=== PATIENT | female | born 1935 | race Hispanic/Latino ===

== ENCOUNTER 2018-06-08 10:31 | Emergency (ER) | payer OTHER ==
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
--- NOTE | 2018-06-08 12:50 | RAD REPORT ---
EXAM DESCRIPTION: RAD - Knee Left 3 View - 06/08/2018 10:52 am CLINICAL HISTORY: Left knee pain status post injury FINDINGS: No fracture or dislocation is seen. The bones are osteoporotic. Marked osteoarthritis involves the medial compartment. Mild lateral subluxation of tibia on the femur is seen. Several calcific densities along the superior aspect of the knee may represent loose bodies
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
[2018-06-08 13:29] VITALS: BP 151/85; O2SAT 100
--- NOTE | 2018-06-10 07:53 | EKG ---
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
== END 2018-06-08 13:21 | disposition home or self-care (01) ==
LOC: ER 10:31
DX: S20.219A Contusion of unspecified front wall of thorax, initial encounter (principal); V43.52XA Car driver injured in collision with other type car in traffic accident, initial encounter; Y93.89 Activity, other specified; Y92.410 Unspecified street and highway as the place of occurrence of the external cause; M23.92 Unspecified internal derangement of left knee; Z88.5 Allergy status to narcotic agent; E78.5 Hyperlipidemia, unspecified; I10 Essential (primary) hypertension
CPT/HCPCS: 71260; 73562; 74177; 93005; Q9967; 99285

== ENCOUNTER 2018-06-12 23:58 | Emergency (ER) | payer OTHER ==
[2018-06-13] MEDS ORDERED: HYDROCODONE/APAP 5/325 MG TAB ONE (04:21)
--- NOTE | 2018-06-13 04:27 | EDPHYS ---
Physician Documentation [facility] Name: Sun Robles Age: 83 yrs Sex: Female : 1935 Arrival Date: 06/13/2018 Time: 00:01 Bed 19 Private MD: Heladio Herbert R ED Physician Vadim Figueroa HPI: 06/13 04:21 This 83 yrs old Female presents to ER via Wheelchair with complaints of Chest gs Wall Injury. 04:21 Onset: The symptoms/episode began/occurred 7 week(s) ago, and became persistent. gs Duration: The symptoms are continuous. The patient's shortness of breath is aggravated by. 04:22 The patient or guardian reports chest pain that is located primarily in the anterior gs chest wall. Associated signs and symptoms: Pertinent positives: shortness of breath. The chest pain is described as sharp. Duration: The patient or guardian reports a single episode, that is still ongoing. Modifying factors: the symptoms are aggravated by deep breath. Severity of pain: At its worst the pain was moderate in the emergency department the pain is unchanged. The patient has not experienced similar symptoms in the past. The patient has been recently seen at the [facility] Emergency Department, last week. Historical: - Allergies: 00:26 Codeine; bs1 - Home Meds: 00:26 Cartia XT 240 mg Oral cp24 [Active]; atorvastatin 80 mg Oral tab [Active]; ProAir HFA bs1 inhalation [Active]; fluticasone propionate (bulk) miscellaneous [Active]; pantoprazole 40 mg Oral TbEC [Active]; - PMHx: 00:26 Angina; COPD; heart problem (valve); Hyperlipidemia; Hypertension; lung problem; bs1 - PSHx: 00:26 ; Cholecystectomy; Hysterectomy; hip sx; bs1 - Immunization history:: Adult Immunizations up to date. - Social history:: Smoking status: Patient/guardian denies using tobacco. - Ebola Screening: : Patient negative for fever greater than or equal to 101.5 degrees Fahrenheit, and additional compatible Ebola Virus Disease symptoms Patient denies exposure to infectious person. ROS: 04:22 All other systems are negative. gs Exam: 04:22 Head/Face: Normocephalic, atraumatic. Eyes: Pupils equal round and reactive to light, gs extra-ocular motions intact. Lids and lashes normal. Conjunctiva and sclera are non-icteric and not injected. Cornea within normal limits. Periorbital areas with no swelling, redness, or edema. ENT: Nares patent. No nasal discharge, no septal abnormalities noted. Tympanic membranes are normal and external auditory canals are clear. Oropharynx with no redness, swelling, or masses, exudates, or evidence of obstruction, uvula midline. Mucous membranes moist. Neck: Trachea midline, no thyromegaly or masses palpated, and no cervical lymphadenopathy. Supple, full range of motion without nuchal rigidity, or vertebral point tenderness. No Meningismus. Cardiovascular: Regular rate and rhythm with a normal S1 and S2. No gallops, murmurs, or rubs. Normal PMI, no JVD. No pulse deficits. Abdomen/GI: Soft, non-tender, with normal bowel sounds. No distension or tympany. No guarding or rebound. No evidence of tenderness throughout. Back: No spinal tenderness. No costovertebral tenderness. Full range of motion. Skin: Warm, dry with normal turgor. Normal color with no rashes, no lesions, and no evidence of cellulitis. MS/ Extremity: Pulses equal, no cyanosis. Neurovascular intact. Full, normal range of motion. Neuro: Awake and alert, GCS 15, oriented to person, place, time, and situation. Cranial nerves II-XII grossly intact. Motor strength 5/5 in all extremities. Sensory grossly intact. Cerebellar exam normal. Normal gait. 04:22 Constitutional: The patient appears alert, awake. 04:22 Chest/axilla: Palpation: tenderness, that is moderate. 04:22 ECG was reviewed by the Attending Physician. 04:22 Respiratory: the patient does not display signs of respiratory distress, Respirations: normal, Breath sounds: decreased breath sounds, that are mild, are scattered. Vital Signs: 00:15 BP 167 / 88; Pulse 82; Resp 17; Temp 98; Pulse Ox 97% on R/A; Weight 71.67 kg; Height 5 bs1 ft. 4 in. (162.56 cm); 01:15 BP 136 / 74; Pulse 67; Resp 16 S; Pulse Ox 97% on R/A; bs1 02:15 BP 138 / 72; Pulse 68; Resp 17 S; Pulse Ox 97% on R/A; bs1 03:00 BP 130 / 68; Pulse 65; Resp 16 S; Pulse Ox 93% on R/A; bs1 04:00 BP 139 / 72; Pulse 63; Resp 15 S; Pulse Ox 95% on R/A; bs1 04:45 BP 147 / 64; Pulse 63; Resp 16; Temp 97.9(O); Pulse Ox 96% on R/A; Pain 3/10; bs1 00:15 Body Mass Index 27.12 (71.67 kg, 162.56 cm) bs1 MDM: 00:33 Patient medically screened. 04:22 Differential diagnosis: Blunt Chest Trauma Chest Wall Contusion Pneumothorax Pulmonary gs Contusion Rib Fracture. Data reviewed: vital signs, nurses notes. Physician consultation: trauma mike reviewed case will see but probably wont admit no clinical reason except pain control 1 week from injury. 06/13 00:34 Order name: Troponin (emerg Dept Use Only); Complete Time: 04:10 06/13 00:34 Order name: CT Chest Wo Con 06/13 04:55 Order name: INCENTIVE SPIROMETRY bs1 EC:22 Rate is 77 beats/min. Rhythm is regular. FL interval is normal. QRS interval is normal. gs T waves are Normal. No ST changes noted. Clinical impression: Abnormal EKG without significant change. Interpreted by me. Administered Medications: 04:18 Drug: [place] 5 mg-325 mg 1 tabs Route: PO; bs1 04:55 Follow up: Response: No adverse reaction bs1 Disposition: 06/13/18 04:27 Discharged to Home. Impression: Fracture of body of sternum. - Condition is Stable. - Discharge Instructions: Sternal Fracture. - Prescriptions for Tramadol 50 mg Oral Tablet - take 1 tablet by ORAL route every 8 hours as needed; 12 tablet. - Medication Reconciliation Form, Thank You Letter, Antibiotic Education, Prescription Opioid Use form. - Follow up: Private Physician; When: 2 - 3 days; Reason: Re-evaluation by your physician. Signatures: Dispatcher [employer] EDMS Vadim Figueroa MD MD gs Salazar, Brittany RN RN bs1 Corrections: (The following items were deleted from the chart) 04:56 04:27 06/13/2018 04:27 Discharged to Home. Impression: Fracture of body of sternum. bs1 Condition is Stable. Forms are Medication Reconciliation Form, Thank You Letter, Antibiotic Education, Prescription Opioid Use. Follow up: Private Physician; When: 2 - 3 days; Reason: Re-evaluation by your physician. gs
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
[2018-06-13 05:06] VITALS: BP 147/64; TEMP 97.9; O2SAT 96
--- NOTE | 2018-06-13 08:29 | RAD REPORT ---
EXAM DESCRIPTION: CT - Thorax Wo Con CLINICAL HISTORY: Chest pain PAIN COMPARISON: Chest For Pe Angio dated 08/04/2017; Chest Abdomen Pelvis W Cont dated 06/08/2018 FINDINGS: Small calcified granuloma again noted in the lungs, stable. No focal pulmonary infiltrate. No pleural thickening or pleural effusion. No pneumothorax. No axillary, mediastinal or hilar adenopathy. Fracture is noted through the sternal body. Small amount of adjacent hematoma seen in the anterior me diastinum. Fat stranding in the right breast with focal soft tissue hyperdensity compatible with denia mishel. All CT scans are performed using dose optimization technique as appropriate and may include automated exposure control or mA/KV adjustment according to patient size. IMPRESSION: Fracture of the sternal body is noted with a small amount of adjacent hematoma. Right breast hematoma again seen.
--- NOTE | 2018-06-13 16:29 | EKG ---
Test Date: 2018-06-13 Test Time: 00:11:48 Transportation Inspector: YANN MEASUREMENT RESULTS: Intervals: Rate: 77 IN: 152 QRSD: 90 QT: 374 QTc: 423 [place]: P: 34 IN: 152 QRS: -27 T: 22 INTERPRETIVE STATEMENTS: Normal sinus rhythm with sinus arrhythmia Minimal voltage criteria for LVH, may be normal variant Borderline ECG Compared to ECG 06/08/2018 10:37:49 Left ventricular hypertrophy now present Electronically Signed On 06-13-18 16:27:28 CDT by Surinder Oliveira
== END 2018-06-13 04:56 | disposition home or self-care (01) ==
LOC: ER 23:58
DX: S22.22XA Fracture of body of sternum, initial encounter for closed fracture (principal); X58.XXXA Exposure to other specified factors, initial encounter; Y93.9 Activity, unspecified; Y92.9 Unspecified place or not applicable; Z88.5 Allergy status to narcotic agent; I10 Essential (primary) hypertension; E78.5 Hyperlipidemia, unspecified; J44.9 Chronic obstructive pulmonary disease, unspecified
CPT/HCPCS: 36415; 71250; 84484; 93005; 99285

== ENCOUNTER 2018-10-18 11:18 | Emergency (ER) | payer OTHER ==
--- OUTSIDE RECORDS SUMMARY | 2018-10-18 11:26 | XMS REPORT ---
:1935 [facility] [address] [place] [address] [address] [place] [address] Care Team Providers Name Role Phone Unavailable Unavailable Unavailable Problems This patient has no known problems. Allergies, Adverse Reactions, Alerts This patient has no known allergies or adverse reactions. Medications This patient has no known medications.
--- NOTE | 2018-10-18 12:33 | RAD REPORT ---
EXAM DESCRIPTION: RAD - Chest Pa And Lat (2 Views) - 10/18/2018 12:27 pm CLINICAL HISTORY: COUGH Chest pain. COMPARISON: Chest Single View dated 08/04/2017; CHEST PA AND LAT 2 VIEW dated 02/15/2012; CHEST SINGL E VIEW dated 04/04/2009 FINDINGS: The lungs are mildly emphysematous but clear. The heart is upper limit of normal in size. No displaced fractures. Aortic atherosclerosis. IMPRESSION: Mild COPD.
--- NOTE | 2018-10-18 14:49 | EKG ---
Test Date: 2018-10-18 Test Time: 14:22:51 Community Service Officer: ALLYSON MEASUREMENT RESULTS: Intervals: Rate: 66 MN: 178 QRSD: 86 QT: 416 QTc: 436 [place]: P: 58 MN: 178 QRS: -17 T: 25 INTERPRETIVE STATEMENTS: Sinus rhythm with marked sinus arrhythmia Otherwise normal ECG Compared to ECG 06/13/2018 00:11:48 Left ventricular hypertrophy no longer present Electronically Signed On 10-18-18 14:48:15 COLLECTOR OF AQUARIUM SPECIMENS by Marcos Bloom
[2018-10-18 15:46] LABS: Protime INR 1.08
[2018-10-18 15:51] LABS: Absolute Lymphocytes (CBC) 2.3 K/uL (0.7-4.9); Absolute Monocytes 0.4 K/uL (0.1-1.3); Absolute Neutrophil 2.2 K/uL (1.8-8.0); Basophils % 0.5 % (0-1.3); Eosinophils % 0.9 % (0-4.4); Hematocrit 44.4 % (36.0-45.0); Lymphocytes % 45.6 % (15.3-44.8); MPV 9.7 fL (7.6-11.3); Monocytes % 8.5 % (3.3-12.3); RBC Red Blood Cell Count 4.93 M/uL (3.86-4.86)
[2018-10-18 16:02] LABS: ALT/SGPT 28 U/L (12-78); AST/SGOT 18 U/L (15-37); Albumin 3.8 g/dL (3.4-5.0); Alkaline Phosphatase 82 U/L (45-117); BUN Blood Urea Nitrogen 8 mg/dL (7-18); Bicarbonate 29 mmol/L (21-32); Bilirubin Direct 0.1 mg/dL (0-0.2); Bilirubin Total 0.4 mg/dL (0.2-1.0); Glucose Level 89 mg/dL (74-106); Magnesium 2.7 mg/dL (1.8-2.4); NT PRO-BNP 36 pg/mL (<450); Potassium 3.3 mmol/L (3.5-5.1); Sodium Level 141 mmol/L (136-145); Troponin (Emerg Dept Use Only) < 0.02 ng/mL (0.0-0.045)
--- NOTE | 2018-10-18 16:43 | RAD REPORT ---
EXAM DESCRIPTION: CT - Chest For Pe Angio - 10/18/2018 4:30 pm CLINICAL HISTORY: Chest pain and cough COMPARISON: May 2018 TECHNIQUE: Dynamically enhanced axial 3 mm thick images of the chest were obtained during administra tion of <100> mL Isovue 370 IV contrast. Coronal and oblique reconstruction images were generated and reviewed. Exam utilizes a protocol for optimal evaluation of pulmonary arterial tree. Maximum intensity projections 3D imaging was utilized All CT scans are performed using dose optimization technique as appropriate and may include automated exposure control or mA/KV adjustment according to patient size. FINDINGS: A pulmonary embolus is not seen. A thoracic aortic aneurysm is not noted. A pleural effusion is not seen. A pericardial effusion is not seen. 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 Mild ground-glass opacities right middle lobe consistent with a mild alveolitis
--- NOTE | 2018-10-18 16:56 | EDPHYS ---
Physician Documentation [facility] Name: Sun Robles Age: 83 yrs Sex: Female : 1935 Arrival Date: 10/18/2018 Time: 11:24 Bed 19 Private MD: Heladio Herbert R ED Physician Michael Lafleur HPI: 10/18 13:40 This 83 yrs old Female presents to ER via Ambulatory with complaints of Flu jmm Symptoms. 13:40 The patient or guardian reports cough. Onset: The symptoms/episode began/occurred jmm gradually, 1 week(s) ago. Modifying factors: The symptoms are alleviated by humidifier. Associated signs and symptoms: Pertinent positives: chest pain, with cough, fever. This is an 83 year old female with a history of HTN, COPD, HLP, that presents to the ED weith 1 week of congestion, cough, chills, chest pain with cough. Patient states she had one episode of blood tinged sputum and states now her sputum is yellow. Patient states having fever and chills and states she feels similar to a previous episode of the flu. . Historical: - Allergies: 11:54 Codeine; aj - Home Meds: 11:54 atorvastatin 80 mg Oral tab [Active]; Cartia XT 240 mg Oral cp24 [Active]; fluticasone aj propionate (bulk) miscellaneous [Active]; pantoprazole 40 mg Oral TbEC [Active]; ProAir HFA inhalation [Active]; - PMHx: 11:54 Angina; COPD; heart problem (valve); Hyperlipidemia; Hypertension; lung problem; aj - PSHx: 11:54 ; Cholecystectomy; Hysterectomy; hip sx; aj - Immunization history:: Adult Immunizations up to date. - Social history:: Smoking status: Patient/guardian denies using tobacco. - Ebola Screening: : Patient negative for fever greater than or equal to 101.5 degrees Fahrenheit, and additional compatible Ebola Virus Disease symptoms Patient denies exposure to infectious person Patient denies travel to an Ebola-affected area in the 21 days before illness onset No symptoms or risks identified at this time. ROS: 13:40 Constitutional: Positive for body aches, chills, fever. jmm 13:40 ENT: Positive for sinus congestion. 13:40 Cardiovascular: Positive for chest pain, with cough. 13:40 Respiratory: Positive for cough, hemoptysis. 13:40 All other systems are negative. Exam: 13:40 Head/Face: atraumatic. Eyes: EOMI, no conjunctival erythema appreciated ENT: Moist jmm Mucus Membranes Neck: Trachea midline, Supple Chest/axilla: Normal chest wall appearance and motion. 13:40 Constitutional: The patient appears in no acute distress, alert, awake. 13:40 Cardiovascular: Rate: normal, Rhythm: regular, Pulses: no pulse deficits are appreciated. 13:40 Respiratory: the patient does not display signs of respiratory distress, Respirations: normal, Breath sounds: are clear throughout. 13:40 Abdomen/GI: Inspection: abdomen appears normal, Palpation: abdomen is soft and non-tender, in all quadrants. 13:40 Back: ROM is normal. 13:40 Musculoskeletal/extremity: ROM: intact in all extremities. 13:40 Skin: Appearance: Color: normal in color. 13:40 Neuro: Orientation: is normal, Mentation: is normal, Memory: is normal. 13:40 Psych: Behavior/mood is pleasant, cooperative. Vital Signs: 11:54 BP 144 / 93; Pulse 85; Resp 20; Temp 97.4; Pulse Ox 96% on R/A; Weight 68.04 kg; Height aj 5 ft. 4 in. (162.56 cm); 15:30 BP 143 / 72; Pulse 72; Resp 19; Pulse Ox 97% on R/A; Pain 0/10; em 16:47 BP 146 / 63; Pulse 61; Resp 16; Temp 97.7(O); Pulse Ox 98% on R/A; mh5 17:31 BP 182 / 84; Pulse 76; Resp 16; Pulse Ox 98% on R/A; em 11:54 Body Mass Index 25.75 (68.04 kg, 162.56 cm) aj MDM: 13:09 Patient medically screened. bindu 16:54 Data reviewed: vital signs, nurses notes. Counseling: I had a detailed discussion with fadia the patient and/or guardian regarding: the historical points, exam findings, and any diagnostic results supporting the discharge/admit diagnosis, radiology results, the need for outpatient follow up, to return to the emergency department if symptoms worsen or persist or if there are any questions or concerns that arise at home. 16:55 Data reviewed: lab test result(s), radiologic studies, CT scan. [facility] 16:55 Data interpreted: Pulse oximetry: on room air is 98 %. Interpretation: normal. ED [facility] course: Patient is alert and non toxic in appearance in the ED. Patient prescribed oral antibiotics and given strict return precautions. patient understood and agrees with the plan of care. . 10/18 11:55 Order name: Flu; Complete Time: 13:03 10/18 13:44 Order name: Basic Metabolic Panel; Complete Time: 16:03 [facility] 10/18 13:44 Order name: CBC with Diff; Complete Time: 16:02 [facility] 10/18 13:44 Order name: LFT's; Complete Time: 16:03 [facility] 10/18 13:44 Order name: Magnesium; Complete Time: 16:03 [facility] 10/18 13:44 Order name: NT PRO-BNP; Complete Time: 16:03 [facility] 10/18 11:55 Order name: XRAY Chest Pa And Lat (2 Views); Complete Time: 13:03 10/18 13:44 Order name: PT-INR; Complete Time: 16:02 [facility] 10/18 13:44 Order name: Troponin (emerg Dept Use Only); Complete Time: 16:03 [facility] 10/18 13:44 Order name: EKG; Complete Time: 13:45 [facility] 10/18 13:44 Order name: Cardiac monitoring; Complete Time: 15:50 [facility] 10/18 13:44 Order name: Procalcitonin; Complete Time: 16:10 [facility] 10/18 13:44 Order name: Lactate; Complete Time: 16:02 [facility] 10/18 13:44 Order name: CT Chest For PE Angio; Complete Time: 16:50 [facility] 10/18 13:44 Order name: EKG - Nurse/Tech; Complete Time: 15:50 [facility] 10/18 13:44 Order name: IV Saline Lock; Complete Time: 15:50 [facility] 10/18 13:44 Order name: Labs collected and sent; Complete Time: 15:50 [facility] 10/18 13:44 Order name: O2 Per Protocol; Complete Time: 15:50 [facility] 10/18 13:44 Order name: O2 Sat Monitoring; Complete Time: 15:50 [facility] 10/18 14:48 Order name: Labs - recollect needed; Complete Time: 15:36 eb Administered Medications: No medications were administered Disposition: 10/18/18 16:56 Discharged to Home. Impression: Acute bronchitis. - Condition is Stable. - Discharge Instructions: Acute Bronchitis, Adult. - Prescriptions for cefdinir 300 mg Oral capsule - take 1 capsule by ORAL route every 12 hours; 20 capsule. - Medication Reconciliation Form, Thank You Letter, Antibiotic Education, Prescription Opioid Use form. - Follow up: Heladio Herbert MD; When: 2 - 3 days; Reason: Recheck today's complaints, Continuance of care, Re-evaluation by your physician. Addendum: 10/22/2018 11:03 Co-signature as Attending Physician, Mcihael Lafleur MD I agree with the assessment and c willson plan of care. Signatures: Dispatcher [employer] Sharon Rodriguez, Michael Wang RN, MD MD cha Mickail, Joel, PA PA Akshat Flowers, PRESSURE SUPERVISOR PRESSURE SUPERVISOR em Yue Carter Corrections: (The following items were deleted from the chart) 10/18 17:32 16:56 10/18/2018 16:56 Discharged to Home. Impression: Acute bronchitis. Condition is em Stable. Forms are Medication Reconciliation Form, Thank You Letter, Antibiotic Education, Prescription Opioid Use. Follow up: Heladio Herbert; When: 2 - 3 days; Reason: Recheck today's complaints, Continuance of care, Re-evaluation by your physician. fadia
--- NOTE | 2018-10-18 16:56 | ER ---
Nurse's Notes [facility] Emergency Department Name: Sun Robles Age: 83 yrs Sex: Female : 1935 Arrival Date: 10/18/2018 Time: 11:24 Bed 19 Private MD: Heladio Herbert R Diagnosis: Acute bronchitis Presentation: 10/18 11:52 Presenting complaint: Patient states: Cough, congestion for 1 week with SOB. NAD, aj respirations are even and unlabored. Transition of care: patient was not received from another setting of care. Onset of symptoms was October 11, 2018. Risk Assessment: Do you want to hurt yourself or someone else? Patient reports no desire to harm self or others. Initial Sepsis Screen: Does the patient meet any 2 criteria? No. Patient's initial sepsis screen is negative. Does the patient have a suspected source of infection? No. Patient's initial sepsis screen is negative. Care prior to arrival: None. 11:52 Method Of Arrival: Ambulatory aj 11:52 Acuity: MAGY 3 aj Triage Assessment: 11:54 General: Appears in no apparent distress. comfortable, Behavior is calm, cooperative, aj appropriate for age. Pain: Denies pain. EENT: Reports nasal congestion nasal discharge. Neuro: Level of Consciousness is awake, alert, obeys commands, Oriented to person, place, time, situation, Appropriate for age. Respiratory: Reports shortness of breath cough that is Airway is patent Trachea midline Respiratory effort is even, unlabored, Respiratory pattern is regular, symmetrical, the patient has mild shortness of breath. Derm: Skin is intact, is healthy with good turgor, Skin is pink, warm \T\ dry. normal. Historical: - Allergies: 11:54 Codeine; aj - Home Meds: 11:54 atorvastatin 80 mg Oral tab [Active]; Cartia XT 240 mg Oral cp24 [Active]; fluticasone aj propionate (bulk) miscellaneous [Active]; pantoprazole 40 mg Oral TbEC [Active]; ProAir HFA inhalation [Active]; - PMHx: 11:54 Angina; COPD; heart problem (valve); Hyperlipidemia; Hypertension; lung problem; aj - PSHx: 11:54 ; Cholecystectomy; Hysterectomy; hip sx; aj - Immunization history:: Adult Immunizations up to date. - Social history:: Smoking status: Patient/guardian denies using tobacco. - Ebola Screening: : Patient negative for fever greater than or equal to 101.5 degrees Fahrenheit, and additional compatible Ebola Virus Disease symptoms Patient denies exposure to infectious person Patient denies travel to an Ebola-affected area in the 21 days before illness onset No symptoms or risks identified at this time. Screenin:39 Abuse screen: Denies threats or abuse. Nutritional screening: No deficits noted. em Tuberculosis screening: No symptoms or risk factors identified. Fall Risk None identified. Assessment: 13:35 General: Appears in no apparent distress. comfortable, Behavior is calm, cooperative, em Reports chills for 12-24 hours, Denies fever. Pain: Denies pain. Neuro: Level of Consciousness is awake, alert, obeys commands, Oriented to person, place, time, situation. Cardiovascular: Patient's skin is warm and dry. Rhythm is sinus rhythm. Respiratory: Reports cough that is productive, Airway is patent Respiratory effort is even, unlabored, Respiratory pattern is regular, symmetrical, Breath sounds are clear bilaterally. GI: Abdomen is flat, Patient currently denies nausea, vomiting. : No signs and/or symptoms were reported regarding the genitourinary system. EENT: No signs and/or symptoms were reported regarding the EENT system. Derm: Skin is intact, is healthy with good turgor, Skin is pink, warm \T\ dry. Musculoskeletal: Range of motion: intact in all extremities. 13:45 General: The previous assessment is accurate, call light remains within reach. . ss 15:30 Reassessment: Patient appears in no apparent distress at this time. Patient and/or em family updated on plan of care and expected duration. Pain level reassessed. Patient is alert, oriented x 3, equal unlabored respirations, skin warm/dry/pink. pt had labs recollected. 16:45 Reassessment: Patient appears in no apparent distress at this time. Patient and/or em family updated on plan of care and expected duration. Pain level reassessed. Patient is alert, oriented x 3, equal unlabored respirations, skin warm/dry/pink. Patient denies pain at this time. Patient states feeling better. 17:31 Reassessment: Patient appears in no apparent distress at this time. Patient and/or em family updated on plan of care and expected duration. Pain level reassessed. Patient is alert, oriented x 3, equal unlabored respirations, skin warm/dry/pink. Vital Signs: 11:54 BP 144 / 93; Pulse 85; Resp 20; Temp 97.4; Pulse Ox 96% on R/A; Weight 68.04 kg; Height aj 5 ft. 4 in. (162.56 cm); 15:30 BP 143 / 72; Pulse 72; Resp 19; Pulse Ox 97% on R/A; Pain 0/10; em 16:47 BP 146 / 63; Pulse 61; Resp 16; Temp 97.7(O); Pulse Ox 98% on R/A; mh5 17:31 BP 182 / 84; Pulse 76; Resp 16; Pulse Ox 98% on R/A; em 11:54 Body Mass Index 25.75 (68.04 kg, 162.56 cm) aj ED Course: 11:24 Patient arrived in ED. sb2 11:24 Heladio Herbert MD is Private Physician. sb2 11:53 Triage completed. aj 11:54 Arm band placed on left wrist. Patient placed in waiting room, Patient notified of wait aj time. Labs ordered per protocol. X-ray ordered. 12:27 XRAY Chest Pa And Lat (2 Views) In Process Unspecified. EDMS 13:00 Akshat Sims LVN is Primary Nurse. em 13:03 Darwin Acosta PA is PHCP. jmm 13:03 Michael Lafleur MD is Attending Physician. jmm 13:39 Patient has correct armband on for positive identification. Placed in gown. Bed in low em position. Call light in reach. Side rails up X2. Adult w/ patient. 14:30 Radiology exam delayed due to lab results not completed at this time. (BUN/Creatinine). sj 14:48 EKG done, by clean room technician. reviewed by Darwin LAZCANO. 3 15:30 Lab(s) recollected, by me, sent to lab. Inserted saline lock: 22 gauge in right em antecubital area, using aseptic technique. Blood collected. 15:38 Radiology exam delayed due to lab results not completed at this time. (BUN/Creatinine). vm2 16:02 Radiology exam delayed due to lab results not completed at this time. (BUN/Creatinine). nj 16:[address] nj 16:29 CT completed. Patient tolerated procedure well. Patient moved back from CT. nj 16:30 CT Chest For PE Angio In Process Unspecified. EDMS 16:55 Heladio Herbert MD is Referral Physician. jmm 17:15 No provider procedures requiring assistance completed. IV discontinued, intact, em bleeding controlled, No redness/swelling at site. Pressure dressing applied. Administered Medications: No medications were administered Outcome: 16:56 Discharge ordered by MD. jmm 17:24 Discharged to home ambulatory. em 17:24 Condition: good 17:24 Discharge instructions given to patient, Instructed on discharge instructions, follow up and referral plans. medication usage, Demonstrated understanding of instructions, follow-up care, medications, Prescriptions given X 1. 17:32 Patient left the ED. em Signatures: Dispatcher [employer] EDMS Sharon Donahue, RN RN Darwin Austin PA PA jmm Jones, Susan sj Munoz, Edgar, TEXTILE BAG SEWER TEXTILE BAG SEWER em Pamela Franklin, SARAHI RN Flo Ha Maria 5 Nellie Rivera 2 Anna Viera 2 Jessica Mendoza 3
[2018-10-18 17:43] VITALS: TEMP 97.7; O2SAT 98
[2018-10-18 17:44] VITALS: BP 182/84
== END 2018-10-18 17:32 | disposition home or self-care (01) ==
LOC: ER 11:18
DX: J20.9 Acute bronchitis, unspecified (principal); I10 Essential (primary) hypertension; E78.5 Hyperlipidemia, unspecified; J44.9 Chronic obstructive pulmonary disease, unspecified; Z88.5 Allergy status to narcotic agent
CPT/HCPCS: 36415; 71046; 71275; 80048; 80076; 83605; 83735; 83880; 84145; 84484; 85025; 85610; 87804 ×2; 93005; 99285; Q9967

== ENCOUNTER 2020-06-05 04:45 | Emergency (ER) | payer OTHER ==
--- OUTSIDE RECORDS SUMMARY | 2020-06-05 04:47 | XMS REPORT | Continuity of Care Document ---
:1935 Author Organization [facility] t Address [address] [place] [address] Care Team Providers Name Role Phone Unavailable Unavailable Unavailable Problems Condition Condition Condition Status Onset Resolution Last Treating Co mments Source Name Details Category Date Date Treatment Clinician Date HTN, goal HTN, goal Problem Active [facility] - 150/90 150/90 [facility] Mixed Mixed Diagnosis Active [facility] hyperlipid hyperlipid Leah kes - emia emia [facility] History of History of Diagnosis Active [facility] diverticul diverticul Leah kes - itis itis [facility] Hypokalemi Hypokalemi Diagnosis Active [facility] Osteoporos Osteoporos Diagnosis Active [facility] is, is, [facility] - unspecifie unspecifie Me moria d d l osteoporos osteoporos Ou tpati is type, is type, ent unspecifie unspecifie Cl inics d d pathologic pathologic al al fracture fracture presence presence Allergic Allergic Diagnosis Active [facility] rhinitis, rhinitis, [facility] - unspecifie unspecifie Me moria d d l seasonalit seasonalit Ou tpati y, y, ent unspecifie unspecifie Cl inics d trigger d trigger GERD GERD Diagnosis Active [facility] without without [facility] - esophagiti esophagiti Me moria s [facility] Cardiac Cardiac Diagnosis Active [facility] t arrhythmia arrhythmia Leah kes - , , Memoria unspecifie unspecifie l d cardiac d cardiac Outp ati arrhythmia arrhythmia en t type type Clinics Allergies, Adverse Reactions, Alerts Allergy Allergy Status Severity Reaction(s) Onset Inactive Treating Comm ents Source Name Type Date Date Clinician codeine Adverse Active nausea and [facility] Reaction vomiting [facility] Medications Ordered Filled Start Stop Current Ordering Indication Dosage Frequency Signature Comments Components Source Medication Medication Date Date Medication? Clinician (SIG) Name Name ProAir HFA ProAir HFA Yes Seth [address] [facility] needed [facility] Losartan Losartan Yes Seth [address] Potassium Potassium [facility] - [facility] Potassium Potassium Yes Seth [address] [facility] Chloride Chloride [place] with food [facility] - [facility] Vitamin C Vitamin C Yes Seth [address] [facility] Fish Oil Fish Oil Yes Seth [address] [facility] Calcium Calcium Yes Seth [address] [facility] 1200 1200 [place] with a [facility] - meal [facility] Probiotic Probiotic Yes Seth as [facility] directed [facility] Citrucel Citrucel Yes Seth [address] [facility] as needed [facility] Atorvastati Atorvastati Yes Seth [address] [facility] n Calcium n Calcium [facility] - [facility] Pantoprazol Pantoprazol Yes Seth [address] [facility] e Sodium e Sodium [facility] Fluticasone Fluticasone Yes Seth [address] [facility] Propionate Propionate [facility] each Leah kes - nostril [facility] Aspirin Aspirin Yes Seth [address] [facility] Vitamin B Vitamin B Yes Seth as [facility] 12 12 [facility] directed [facility] Coenzyme Coenzyme Yes Seth [address] [facility] Q-10 Q-10 [place] with a [facility] - meal [facility] Iron Iron Yes Seth [address] [facility] Nitroglycer Nitroglycer Yes Seth as [facility] in in [facility] directed [facility] Albuterol Albuterol Yes Seth [address] [facility] Sulfate HFA Sulfate HFA [facility] needed [facility] - [facility] Miralax Miralax Yes Seth One packet C [facility] mixed with [facility] - 8 oz of [facility] Fluid l Outpati ent Clinics Mucus Mucus Yes Seth [address] [facility] Relief Relief [facility] as needed [facility] - Chest Chest [facility]oria Congestion Congestion l Outpati ent Clinics Procedures This patient has no known procedures. Encounters Start End Encounter Admission Attending Care Care Encounter Source Date/Time Date/Time Type Type Clinicians Facility Department ID 2020-05-03 2020-05-03 [facility] [id number] [facility] 09[facility]00[facility]00 09[facility]00[facility]00 [facility] l Medicine Outpati ent Clinics 2020-02-26 2020-02-26 [facility] [id number] [facility] 16:08:00 16:08:00 t [facility] l Medicine Outpati ent Clinics 2020-01-01 2020-01-01 [facility] [id number] [facility] 08:00:00 08:00:00 t [facility] l Medicine Outpati ent Clinics 2019-09-03 2019-09-03 [facility] [id number] [facility] 09:30:00 09:30:00 t [facility] l Medicine Outpati ent Clinics 2019-06-05 2019-06-05 [facility] [id number] [facility] 09:45:00 09:45:00 t [facility] l Medicine Outpati ent Clinics 2019-05-30 2019-05-30 [facility] [id number] [facility] 10[facility]30:00 10:30:00 t [facility] l Medicine Outpati ent Clinics 2019-05-02 2019-05-02 [facility] [id number] [facility] 08[facility]00:00 08:00:00 t [facility] l Medicine Outpati ent Clinics 2019-02-28 2019-02-28 [facility] [id number] 10:15:00 10:15:00 t [facility] l Medicine Outpati ent Clinics 2018-12-09 2018-12-09 [facility] [id number] [facility] 13:30:00 13:30:00 t [facility] Medicine Outpati ent Clinics Results This patient has no known results.
--- OUTSIDE RECORDS SUMMARY | 2020-06-05 04:48 | XMS REPORT ---
:1935 Author Organization [employer] Care Team Providers Name Role Phone JerrySeth Provider Role Unavailable Allergies, Adverse Reactions, Alerts Substance Reaction Event Type codeine nausea and vomiting Drug Allergy Problems Problem Type Condition Code Onset Dates Condition Statu s Assessment HTN, goal below 150/90 I10 Activ e Problem HTN, goal below 150/90 I10 Activ e Problem Mixed hyperlipidemia E78.2 Active Problem History of diverticulitis Z87.19 Ac tive Problem Hypokalemia E87.6 Active Problem Osteoporosis, unspecified M81.0 Ac tive osteoporosis type, unspecified pathological fracture presence Problem Allergic rhinitis, unspecified J30.9 Active seasonality, unspecified trigger Problem GERD without esophagitis K21.9 Act earnest Problem Cardiac arrhythmia, unspecified I49.9 Active cardiac arrhythmia type Assessment History of diverticulitis Z. Ac tive Assessment Allergic rhinitis, unspecified J30.9 Active seasonality, unspecified trigger Assessment GERD without esophagitis K21.9 Act earnest Assessment Osteoporosis, unspecified M81.0 Ac tive osteoporosis type, unspecified pathological fracture presence Assessment Mixed hyperlipidemia E78.2 Active Assessment Hypokalemia E87.6 Active Assessment Cardiac arrhythmia, unspecified I49.9 Active cardiac arrhythmia type Medications Medication Code Code Instructions Start End Status Dosage System Date Date Mucus Relief [facility] 59332185242 400 MG Orally Active 1 tablet Chest Congestion every 4 hrs as needed Vitamin B 12 [facility] 60375047514 250 MCG Orally Active as directed ProAir HFA [facility] 23907059156 108 (90 Base) Active 2 p uffs as MCG/ACT needed Inhalation every 6 hrs Probiotic [facility] 41432102698 - Orally Active as directed Coenzyme Q-10 [facility] 18915577113 100 MG Orally Active 1 capsule Once a day with a meal Losartan ND 40561895349 100 MG Orally Active 1 tab let Potassium Once a day Aspirin ND 93098669427 325 MG Orally Active 1 tabl et Once a day Miralax [facility] 34037935016 17 grams Orally Active One packet Once daily mixed with 8 oz of Fluid Citrucel [facility] 34099772313 500 MG Orally Active 2 tab lets Six times a day as neede d Calcium 1200 [facility] 58347054784 9445-3531 Active 1 tab let MG-UNIT Orally with a Once a day meal Vitamin C [facility] 60392932540 1000 MG Orally Active 1 t ablet Once a day Albuterol [facility] 16586639582 108 (90 Base) Active 1 pu ff as Sulfate HFA MCG/ACT needed Inhalation every 4 hrs Fluticasone [facility] 75014269777 50 MCG/ACT Active 1 spr ay in Propionate Nasally Twice a each day nostril Nitroglycerin [facility] 34932663688 0.4 MG Active as Sublingual directed Iron [facility] [address]-56 65 MG Orally Active 1 tab let Once a day Fluticasone [facility] 22690882915 50 MCG/ACT Active 1 spr ay in Propionate Nasally Twice a each day nostril Fish Oil [facility] 65330076926 1200 MG Orally Active 1 ca psule Once a day Atorvastatin [facility] 63460817578 80 MG Orally Active 1 tablet Calcium Once a day Pantoprazole [facility] 19483609685 40 MG Orally Active 1 tablet Sodium Once a day Potassium [facility] 94128486776 10 MEQ Orally Active 1 ta blet Chloride Once a day with food Results No Known Results Summary Purpose [employer] Submission
[2020-06-05 06:25] LABS: Basophils % 0.4 % (0-1.3); Hematocrit 45.7 % (36.0-45.0); Lymphocytes % 21.8 % (15.3-44.8); RBC Red Blood Cell Count 4.99 M/uL (3.86-4.86)
[2020-06-05 06:28] LABS: Protime INR 1.03
[2020-06-05 07:08] LABS: ALT/SGPT 37 U/L (12-78); AST/SGOT 18 U/L (15-37); Albumin 3.9 g/dL (3.4-5.0); Alkaline Phosphatase 84 U/L (45-117); BUN Blood Urea Nitrogen 13 mg/dL (7-18); Bicarbonate 30 mmol/L (21-32); Bilirubin Direct 0.2 mg/dL (0-0.2); Bilirubin Total 0.7 mg/dL (0.2-1.0); Glucose Level 106 mg/dL (74-106); Magnesium 2.7 mg/dL (1.8-2.4); NT PRO-BNP 37 pg/mL (<450); Potassium 4.1 mmol/L (3.5-5.1); Protein, Total 8.3 g/dL (6.4-8.2); Sodium Level 142 mmol/L (136-145); Troponin (Emerg Dept Use Only) < 0.02 ng/mL (0.0-0.045)
--- NOTE | 2020-06-05 08:09 | RAD REPORT ---
EXAM DESCRIPTION: CT - Chest For Pe Angio - 06/05/2020 7:46 am CLINICAL HISTORY: Chest pain. PAIN COMPARISON: <Comparisons> TECHNIQUE: CT angiogram of the pulmonary arteries was performed with MIP. All CT scans are performed using dose optimization technique as appropriate and may include automated exposure control or mA/KV adjustment according to patient size. FINDINGS: No evidence of pulmonary thromboembolism. No acute aortic finding demonstrated. Mild diffuse COPD is present. No significant pericardial or pleural fluid. No concerning bony finding. IMPRESSION: No evidence of pulmonary thromboembolism. Mild diffuse COPD.
[2020-06-05] MEDS ORDERED: NA CHLORIDE 0.9% 500 ML ONE (08:19)
--- NOTE | 2020-06-05 08:48 | ER ---
Nurse's Notes [facility] Name: Sun Robles Age: 85 yrs Sex: Female : 1935 Arrival Date: 06/05/2020 Time: 05:01 Bed 7 Private MD: Diagnosis: Pain in left leg Presentation: 06/05 05:02 Chief complaint: Patient states: Pain to left leg that began yesterday, states woken up lp1 from pain to left leg, "felt like someone squeezing left arm" this morning at 0230; Denies any injury, falls. Coronavirus screen: Client denies travel out of the [place] in the last 14 days. At this time, the client does not indicate any symptoms associated with coronavirus-19. Ebola Screen: No symptoms or risks identified at this time. Initial Sepsis Screen: Does the patient meet any 2 criteria? No. Patient's initial sepsis screen is negative. Does the patient have a suspected source of infection? No. Patient's initial sepsis screen is negative. Risk Assessment: Do you want to hurt yourself or someone else? Patient reports no desire to harm self or others. Onset of symptoms was June 04, 2020. 05:02 Method Of Arrival: Wheelchair lp1 05:02 Acuity: MAGY 3 lp1 Historical: - Allergies: 05:04 Codeine; lp1 - Home Meds: 05:04 atorvastatin 80 mg Oral tab once daily [Active]; losartan 100 mg oral tab 1 tab once lp1 daily [Active]; ProAir HFA inhalation 2 puffs [Active]; aspirin 325 mg Oral TbEC 1 tab once daily [Active]; fluticasone inhalation inhalation 1 puff 2 times per day [Active]; - PMHx: 05:04 Angina; COPD; heart problem (valve); Hyperlipidemia; Hypertension; lung problem; lp1 - PSHx: 05:04 Cholecystectomy; Hysterectomy; lp1 - Immunization history:: Adult Immunizations up to date. - Social history:: Smoking status: Patient denies any tobacco usage or history of. Screenin:30 Abuse screen: Denies threats or abuse. Denies injuries from another. Nutritional wh screening: No deficits noted. Tuberculosis screening: No symptoms or risk factors identified. VAN Screening: Arm Drift: Patient shows no arm weakness. Visual Disturbance: No visual disturbance noted. Aphasia: No aphasia noted. Neglect: No neglect noted. Fall Risk None identified. Assessment: 05:20 General: Appears in no apparent distress. Behavior is calm, cooperative, appropriate wh for age. Pain: Complains of pain in left leg Pain radiates to left arm Quality of pain is described as sharp, Pain began 1 day ago. Neuro: Level of Consciousness is awake, alert, obeys commands, Oriented to person, place, time, situation, Appropriate for age Garnett Mechanic are equal bilaterally Moves all extremities. Gait is steady, Speech is normal, Facial symmetry appears normal, Pupils are PERRLA, Intact. Cardiovascular: Heart tones S1 S2. Respiratory: Airway is patent Respiratory effort is even, unlabored, Respiratory pattern is regular, symmetrical, Breath sounds are clear bilaterally. GI: Abdomen is flat, non-distended. : No signs and/or symptoms were reported regarding the genitourinary system. EENT: No signs and/or symptoms were reported regarding the EENT system. Derm: Skin is intact, is healthy with good turgor, Skin is pink, warm \\T\\ dry. normal. Musculoskeletal: Circulation, motion, and sensation intact. 06:50 Reassessment: Patient appears in no apparent distress at this time. No changes from previously documented assessment. Patient and/or family updated on plan of care and expected duration. Pain level reassessed. Patient is alert, oriented x 3, equal unlabored respirations, skin warm/dry/pink. 07:15 Reassessment: Patient appears in no apparent distress at this time. Patient and/or hb family updated on plan of care and expected duration. Pain level reassessed. Patient is alert, oriented x 3, equal unlabored respirations, skin warm/dry/pink. 07:45 Reassessment: US at bedside. hb 08:15 Reassessment: Patient appears in no apparent distress at this time. Patient and/or hb family updated on plan of care and expected duration. Pain level reassessed. Patient is alert, oriented x 3, equal unlabored respirations, skin warm/dry/pink. 08:26 Reassessment: Geovanni Cee [phone]. Vital Signs: 05:02 BP 142 / 89; Pulse 88; Resp 18; Temp 97.5(O); Pulse Ox 97% on R/A; Weight 65.32 kg (R); lp1 Height 5 ft. 2 in. (157.48 cm); 06:50 BP 132 / 76; Pulse 77; Resp 18; Pulse Ox 99% on R/A; wh 07:00 BP 131 / 89; Pulse 77; Resp 18; Pulse Ox 98% ; sv 08:24 BP 142 / 68; Pulse 82; Resp 18; Pulse Ox 100% ; sv 05:02 Body Mass Index 26.34 (65.32 kg, 157.48 cm) lp1 NIH Stroke Scale Scores: 05:30 NIHSS Score: 0 ED Course: 05:01 Patient arrived in ED. lp1 05:03 Triage completed. lp1 05:03 Arm band placed on right wrist. lp1 05:05 Rosa Allen is Primary Nurse. wh 05:35 Patient has correct armband on for positive identification. Bed in low position. Call light in reach. Side rails up X 1. quality assurance monitor chassis on. Pulse ox on. NIBP on. 05:45 CT Head Brain wo Cont In Process Unspecified. EDMS 06:02 Alan Rodriguez NP is PHCP. pm1 06:02 Fernando Canales MD is Attending Physician. pm1 06:15 XRAY Chest (1 view) In Process Unspecified. EDMS 07:46 CT completed. Patient tolerated procedure well. Patient moved back from CT. bq 07:46 CT Chest For PE Angio In Process Unspecified. EDMS 08:25 Ultrasound completed. Patient tolerated well. Notified WELDER METAL FAB/NENO saenz. sg3 08:25 Extremity Venous Uni Ltd US In Process Unspecified. EDMS 08:34 Awaiting radiology results. Awaiting re-evaluation by ER provider. sv 08:59 No provider procedures requiring assistance completed. IV discontinued, intact, sv bleeding controlled, No redness/swelling at site. Pressure dressing applied, to the R AC. Administered Medications: 08:17 Drug: NS 0.9% 500 ml Route: IV; Rate: bolus; Site: right antecubital; hb 08:42 Follow up: Response: No adverse reaction; IV Status: Completed infusion; IV Intake: hb 500ml 08:59 Follow up: Response: No adverse reaction; IV Status: Completed infusion; IV Intake: sv 500ml Intake: 08:42 IV: 500ml; Total: 500ml. hb 08:59 IV: 500ml; Total: 1000ml. sv Outcome: 08:47 Discharge ordered by pm1 08:59 Discharged to home ambulatory, with family. sv 08:59 Condition: stable 08:59 Discharge instructions given to patient, Instructed on discharge instructions, follow up and referral plans. medication usage, Demonstrated understanding of instructions, follow-up care, medications, Prescriptions given X 2. 09:11 Patient left the ED. NIH Stroke Scale - NIH Stroke Score Date: 06/05/2020 Time: 05:30 Total Score = 0 1a. Level of Consciousness (LOC) - 0(Alert) 1b. Level of Consciousness (LOC) (Year \\T\\ Age) - 0(Both) 1c. LOC Commands (Open \\T\\ Closes Eyes/Lithographic Proofer) - 0(Both) 2. Best Gaze (Lateral Gaze Paresis) - 0(Normal) 3. Visual Field Loss - 0(No visual loss) 4. Facial Palsy - 0(Normal) 5a. Left Arm: Motor (10-second hold) - 0(No drift) 5b. Right Arm: Motor (10-second hold) - 0(No drift) 6a. Left Leg: Motor (5-second hold - always test supine) - 0(No drift) 6b. Right Leg: Motor (5-second hold - always test supine) - 0(No drift) 7. Limb Ataxia (finger/nose \\T\\ heel/brewster - test with eyes open) - 0(Absent) 8. Sensory Loss (pinprick arms/legs/face) - 0(Normal) 9. Best Language: Aphasia (description/naming/reading) - 0(No aphasia) 10. Dysarthria (speech clarity - read or repeat words) - 0(Normal) 11. Extinction and Inattention (visual/tactile/auditory/spatial/personal) - 0(No abnormality) Initials: Signatures: Dispatcher [employer] Florence Dunham RN Smita Dunaway Laura, RN RN lp1 Alan Rodriguez, WELDER METAL FAB WELDER METAL FAB pm1 Bita Baumann, SARAHI RN Rosa Witt Sena Yarbrough sg3
--- NOTE | 2020-06-05 08:48 | EDPHYS ---
Physician Documentation [facility] Name: Sun Robles Age: 85 yrs Sex: Female : 1935 Arrival Date: 06/05/2020 Time: 05:01 Bed 7 Private MD: ED Physician Fernando Canales HPI: 06/05 06:21 This 85 yrs old Female presents to ER via Wheelchair with complaints of Left pm1 Leg Pain. 06:21 The patient presents with pain, that is more described as itching. The complaints pm1 affect the left leg. Context: The problem was sustained at home, resulted from an unknown cause, the patient can fully bear weight, the patient is able to ambulate, Problem is a result from a previous injury: Yes. about 40 years ago low back, left hip, and left knee injury from an accident that resulted in fractured left hip and surgery and left knee arthroscopy. Onset: The symptoms/episode began/occurred yesterday. Modifying factors: The symptoms are alleviated by nothing. the symptoms are aggravated by nothing. Associated signs and symptoms: Pertinent positives: swelling to left leg and right ankle that resolve in the morning and worsen throughout the day, Pertinent negatives Chest pain, shortness of breath. Treatment prior to arrival includes: no previous treatment. Severity of symptoms: in the emergency department the symptoms have improved, markedly. The patient has not recently seen a physician, the patient's primary care provider is Dr. Edwards, has appointment next week. Historical: - Allergies: 05:04 Codeine; lp1 - Home Meds: 05:04 atorvastatin 80 mg Oral tab once daily [Active]; losartan 100 mg oral tab 1 tab once lp1 daily [Active]; ProAir HFA inhalation 2 puffs [Active]; aspirin 325 mg Oral TbEC 1 tab once daily [Active]; fluticasone inhalation inhalation 1 puff 2 times per day [Active]; - PMHx: 05:04 Angina; COPD; heart problem (valve); Hyperlipidemia; Hypertension; lung problem; lp1 - PSHx: 05:04 Cholecystectomy; Hysterectomy; lp1 - Immunization history:: Adult Immunizations up to date. - Social history:: Smoking status: Patient denies any tobacco usage or history of. ROS: 06:21 Constitutional: Negative for fever, chills, and weight loss, Eyes: Negative for injury, pm1 pain, redness, and discharge, ENT: Negative for injury, pain, and discharge, Cardiovascular: Negative for chest pain, palpitations, and edema, Respiratory: Negative for shortness of breath, cough, wheezing, and pleuritic chest pain, Abdomen/GI: Negative for abdominal pain, nausea, vomiting, diarrhea, and constipation. 06:21 Skin: Negative for injury, rash, and discoloration, Neuro: Negative for headache, weakness, numbness, tingling, and seizure. 06:21 Neck: Positive for chronic neck pain, Negative for injury or acute deformity. 06:21 Back: Positive for chronic low back pain. 06:21 MS/extremity: Positive for pain, of the left arm and left leg, Negative for decreased range of motion, deformity, paresthesias. Exam: 06:21 Constitutional: This is a well developed, well nourished patient who is awake, alert, pm1 and in no acute distress. Head/Face: Normocephalic, atraumatic. Neck: Trachea midline, no thyromegaly or masses palpated, and no cervical lymphadenopathy. Supple, full range of motion without nuchal rigidity, or vertebral point tenderness. No Meningismus. Chest/axilla: Normal chest wall appearance and motion. Nontender with no deformity. No lesions are appreciated. 06:21 Back: No spinal tenderness. No costovertebral tenderness. Full range of motion. Skin: Warm, dry with normal turgor. Normal color with no rashes, no lesions, and no evidence of cellulitis. MS/ Extremity: Pulses equal, no cyanosis. Neurovascular intact. Full, normal range of motion. 06:21 Cardiovascular: Exam negative for acute changes, Rate: normal, Rhythm: regular, Pulses: no pulse deficits are appreciated, Heart sounds: normal, Edema: is not appreciated. 06:21 Respiratory: Exam negative for acute changes, respiratory distress, shortness of breath. 06:21 Abdomen/GI: Exam negative for acute changes, Inspection: abdomen appears normal, Palpation: abdomen is soft and non-tender, in all quadrants. 06:21 Neuro: Exam negative for acute changes, Orientation: is normal, Mentation: is normal, Motor: is normal, moves all fours, Sensation: is normal, no obvious gross deficits. Vital Signs: 05:02 BP 142 / 89; Pulse 88; Resp 18; Temp 97.5(O); Pulse Ox 97% on R/A; Weight 65.32 kg (R); lp1 Height 5 ft. 2 in. (157.48 cm); 06:50 BP 132 / 76; Pulse 77; Resp 18; Pulse Ox 99% on R/A; wh 07:00 BP 131 / 89; Pulse 77; Resp 18; Pulse Ox 98% ; sv 08:24 BP 142 / 68; Pulse 82; Resp 18; Pulse Ox 100% ; sv 05:02 Body Mass Index 26.34 (65.32 kg, 157.48 cm) lp1 NIH Stroke Scale Scores: 05:30 NIHSS Score: 0 wh MDM: 06:04 Patient medically screened. pm1 06:21 ED course: Informed patient pending ultrasound to be performed. pm1 06:47 Data reviewed: vital signs. Data interpreted: Pulse oximetry: on room air is 97 %. pm1 Interpretation: normal. 06:48 ED course: CT head: No acute intracranial findings. No hemorrhage. pm1 06:49 ED course: Patient not having any current pain. Refused need for pain medications . pm1 07:15 Counseling: I had a detailed discussion with the patient and/or guardian regarding: lab pm1 results, need for CT chest and pending ultrasound due to elevated d-dimer. 08:21 Counseling: I had a detailed discussion with the patient and/or guardian regarding: the pm1 historical points, exam findings, and any diagnostic results supporting the discharge/admit diagnosis, lab results, radiology results, the need for outpatient follow up, to return to the emergency department if symptoms worsen or persist or if there are any questions or concerns that arise at home, Pending completion of IV fluids prior to discharge . 08:21 ED course: Patient told me that her primary concern was for the presence of a blood pm1 clot in her leg. Patient was happy to know that no clots were present in the U/S and CT chest. 08:55 ED course: CLOTH BOLT BANDER aware reviewed. Patient took tramadol in 2018. pm1 06/05 05:27 Order name: Basic Metabolic Panel; Complete Time: 07:10 06/05 05:27 Order name: CBC with Diff; Complete Time: 06:39 06/05 05:27 Order name: LFT's; Complete Time: 07:10 06/05 05:27 Order name: Magnesium; Complete Time: 07:10 06/05 05:27 Order name: NT PRO-BNP; Complete Time: 07: 06/05 05:27 Order name: PT-INR; Complete Time: 06:45 06/05 05:27 Order name: Troponin (emerg Dept Use Only); Complete Time: 07: 06/05 05:27 Order name: XRAY Chest (1 view) 06/05 05:27 Order name: EKG; Complete Time: 05:28 06/05 05:27 Order name: CT Head Brain wo Cont 06/05 05:27 Order name: D-Dimer; Complete Time: 06:45 06/05 05:30 Order name: Extremity Venous Uni Ltd US 06/05 07:13 Order name: CT Chest For PE Angio; Complete Time: 08:12 pm1 06/05 05:27 Order name: Cardiac monitoring; Complete Time: 06: 06/05 05:27 Order name: EKG - Nurse/Tech; Complete Time: 06: 06/05 05:27 Order name: IV Saline Lock; Complete Time: 06: 06/05 05:27 Order name: Labs collected and sent; Complete Time: 06: 06/05 05:27 Order name: O2 Per Protocol; Complete Time: 06: 06/05 05:27 Order name: O2 Sat Monitoring; Complete Time: 06:09 wh Administered Medications: 08:17 Drug: NS 0.9% 500 ml Route: IV; Rate: bolus; Site: right antecubital; hb 08:42 Follow up: Response: No adverse reaction; IV Status: Completed infusion; IV Intake: hb 500ml 08:59 Follow up: Response: No adverse reaction; IV Status: Completed infusion; IV Intake: sv 500ml Disposition: 06/05/20 08:47 Discharged to Home. Impression: Pain in left leg. - Condition is Stable. - Discharge Instructions: Musculoskeletal Pain, Sciatica. - Prescriptions for Tramadol 50 mg Oral Tablet - take 1 tablet by ORAL route every 8 hours As needed as needed; 12 tablet. Zofran ODT 4 mg Oral tablet,disintegrating - place 1 tablet by TRANSLINGUAL route every 8 hours As needed; 12 tablet. - Medication Reconciliation Form, Thank You Letter, Antibiotic Education, Prescription Opioid Use form. - Follow up: Emergency Department; When: As needed; Reason: Worsening of condition. Follow up: Private Physician; When: 2 - 3 days; Reason: Recheck today's complaints, Continuance of care, Re-evaluation by your physician. - Problem is new. - Symptoms have improved. NIH Stroke Scale - NIH Stroke Score Date: 06/05/2020 Time: 05:30 Total Score = 0 1a. Level of Consciousness (LOC) - 0(Alert) 1b. Level of Consciousness (LOC) (Year \T\ Age) - 0(Both) 1c. LOC Commands (Open \T\ Closes Eyes/Rod Drawer) - 0(Both) 2. Best Gaze (Lateral Gaze Paresis) - 0(Normal) 3. Visual Field Loss - 0(No visual loss) 4. Facial Palsy - 0(Normal) 5a. Left Arm: Motor (10-second hold) - 0(No drift) 5b. Right Arm: Motor (10-second hold) - 0(No drift) 6a. Left Leg: Motor (5-second hold - always test supine) - 0(No drift) 6b. Right Leg: Motor (5-second hold - always test supine) - 0(No drift) 7. Limb Ataxia (finger/nose \T\ heel/brewster - test with eyes open) - 0(Absent) 8. Sensory Loss (pinprick arms/legs/face) - 0(Normal) 9. Best Language: Aphasia (description/naming/reading) - 0(No aphasia) 10. Dysarthria (speech clarity - read or repeat words) - 0(Normal) 11. Extinction and Inattention (visual/tactile/auditory/spatial/personal) - 0(No abnormality) Initials: inderjit Addendum: 06/08/2020 19:02 Co-signature as Attending Physician, Fernando Canales MD. pkl Signatures: Dispatcher [employer] EDMS Fernando Canales MD MD pkl Sindy Hilton RN RN lp1 Alan Rodriguez, HEATING REPAIR TECHNICIAN HEATING REPAIR TECHNICIAN pm1 Bita Baumann RN RN Rosa Allen Stephanie RN sv Corrections: (The following items were deleted from the chart) 06/05 09:11 08:47 06/05/2020 08:47 Discharged to Home. Impression: Pain in left leg. hb Condition is Stable. Forms are Medication Reconciliation Form, Thank You Letter, Antibiotic Education, Prescription Opioid Use. Follow up: Emergency Department; When: As needed; Reason: Worsening of condition. Follow up: Private Physician; When: 2 - 3 days; Reason: Recheck today's complaints, Continuance of care, Re-evaluation by your physician. Problem is new. Symptoms have improved. pm1
[2020-06-05 09:15] VITALS: TEMP 97.5
[2020-06-05 09:18] VITALS: BP 142/68; O2SAT 100
--- NOTE | 2020-06-05 12:07 | RAD REPORT ---
EXAM DESCRIPTION: RAD - Chest Single View - 06/05/2020 6:15 am CLINICAL HISTORY: leg Chest pain. COMPARISON: Chest Pa And Lat (2 Views) dated 10/18/2018; Chest Single View dated 08/04/2017; CHEST P A AND LAT 2 VIEW dated 02/15/2012; CHEST SINGLE VIEW dated 04/04/2009 FINDINGS: Portable technique limits examination quality. The lungs are grossly clear. The heart is normal in size. No displaced fractures. IMPRESSION: No acute intrathoracic process suspected.
--- NOTE | 2020-06-05 12:14 | RAD REPORT ---
EXAM DESCRIPTION: US - Extremity Venous Uni Ltd - 06/05/2020 8:47 am CLINICAL HISTORY: PAIN Leg swelling and edema. COMPARISON: No comparisons FINDINGS: Left lower extremity venous system was interrogated with Doppler technique. Normal flow, c ompressibility and augmentation was noted. There is no DVT present. IMPRESSION: No evidence of left lower extremity deep venous thrombosis.
--- NOTE | 2020-06-07 10:08 | RAD REPORT ---
EXAM DESCRIPTION: CT Head Without Intravenous Contrast CLINICAL HISTORY: The patient is 85 years old and is Female; PAIN TECHNIQUE: Axial computed tomography images of the head/brain without intravenous contrast. Sagitt al and coronal reformatted images were created and reviewed. This CT exam was performed using one o r more of the following dose reduction techniques: automated exposure control, adjustment of the mA and/or kV according to patient size, and/or use of iterative reconstruction technique. COMPARISON: No relevant prior studies available. FINDINGS: Brain: Unremarkable. No hemorrhage. No significant white matter disease. No edema. Ventricles: Unremarkable. No ventriculomegaly. Bones/joints: No acute skull fracture. Degenerative bilateral TMJs. Soft tissues: Unremarkable. Sinuses: Unremarkable as visualized. No acute sinusitis. Mastoid air cells: No significant mastoid fluid. IMPRESSION: No acute intracranial findings. No hemorrhage. Electronically signed by: Florence Pereira MD 06/05/2020 6:05 AM CDT Due to temporary technical issues with the PACS/Fluency reporting system, reports are being signed by the in house radiologist without review as a courtesy to ensure prompt reporting. The interpreting r adiologist is fully responsible for the content of the report.
== END 2020-06-05 09:11 | disposition home or self-care (01) ==
LOC: ER 04:45
DX: M79.605 Pain in left leg (principal); I10 Essential (primary) hypertension; E78.5 Hyperlipidemia, unspecified; J44.9 Chronic obstructive pulmonary disease, unspecified; Z88.5 Allergy status to narcotic agent
CPT/HCPCS: 93005; 85025; 80048; 36415; 83735; 85610; 85379; 80076; 84484; 83880; 70450; 71275; 71045; 93971; 99285; Q9967; J7040